=== PATIENT | male | born 1995 | race Caucasian/White ===

== ENCOUNTER 2020-11-24 23:08 | Emergency (ER) | payer BC ==
[2020-11-24 23:29] VITALS: BP 148/98; PULSE 82
--- NOTE | 2020-11-24 23:37 | EDM.PDOC ---
ED HPI GENERAL MEDICAL PROBLEM - General Chief Complaint: Skin Complaint Stated Complaint: LARGE CALLOUS /POSS CYST FORMING ON BOTH FEET SOB Time Seen by Provider: 11/24/20 23:36 - History of Present Illness INITIAL COMMENTS - FREE TEXT/NARRATIVE: 25-year-old male presents the emergency room with with shortness of breath will get better after having Covid in August and he has calluses on his feet. Patient has had couple months of foot problems and his feet are getting sore to walk in. He also has continued shortness of breath after Covid this last fall. Patient does not have any fevers or chills no other congestion no other Covid- like symptoms. The patient does smoke. The patient thought he had thick calluses on his feet and he is getting some discomfort in front of the balls of his feet when he ambulates. He has tried athlete's foot cream without much success. Patient has no other complaints at this time Bilateral Foot Pain Score (Numeric/FACES): 8 - Related Data Allergies Allergy/AdvReac Type Severity Reaction Status Date / Time No Known Allergies Allergy Verified 11/24/20 23:29 Home Meds: Home Meds . [No Known Home Meds] 11/24/20 [History] Past Medical History Psychiatric History: Reports: Anxiety - Infectious Disease History Infectious Disease History: Reports: Novel Coronavirus - Past Surgical History HEENT Surgical History: Reports: Tonsillectomy GI Surgical History: Reports: Appendectomy Social & Family History - Tobacco Use Tobacco Use Status *Q: Never Tobacco User - Caffeine Use Caffeine Use: Reports: None - Living Situation & Occupation Living situation: Reports: Single Occupation: Employed ED ROS GENERAL - Review of Systems Review Of Systems: See Below Constitutional: Reports: No Symptoms. Denies: Fever, Chills HEENT: Reports: No Symptoms Respiratory: Reports: Shortness of Breath, Cough (He has a mild cough just a typical smoker's cough for him) Cardiovascular: Reports: No Symptoms Endocrine: Reports: No Symptoms GI/Abdominal: Reports: No Symptoms : Reports: No Symptoms Musculoskeletal: Reports: No Symptoms Skin: Reports: Other (See history of present illness) Neurological: Reports: No Symptoms ED EXAM, SKIN/RASH Exam: See Below Exam Limited By: No Limitations General Appearance: Alert, No Apparent Distress Eye Exam: Bilateral Eye: Normal Inspection Ears: Normal External Exam, Normal Canal, Hearing Grossly Normal, Normal TMs Nose: Normal Inspection, Normal Mucosa, No Blood Throat/Mouth: Normal Inspection, Normal Lips, Normal Teeth, Normal Gums, Normal Oropharynx, Normal Voice, No Airway Compromise Head: Atraumatic, Normocephalic Neck: Normal Inspection, Supple, Non-Tender. No: Lymphadenopathy (L), Lymphadenopathy (R) Respiratory/Chest: No Respiratory Distress, Lungs Clear, Normal Breath Sounds Cardiovascular: Regular Rate, Rhythm, No Edema, No Murmur Skin: Other (Emanation of the skin on his feet shows dry scaly skin on the plantar aspects of his feet. He has some callus formation on the medial aspects of his great toes bilaterally this is not what is bothering him he has had this dry flaky skin peeled back off the anterior portion of the balls of his feet and the skin is getting a little tender in this area.) Course - Vital Signs Last Recorded V/S: Last Vital Signs Temp 36.6 C 11/24/20 23:26 Pulse 82 11/24/20 23:26 Resp 16 11/24/20 23:26 BP 148/98 H 11/24/20 23:26 Pulse Ox 100 11/24/20 23:26 - Re-Assessments/Exams Free Text/Narrative Re-Assessment/Exam: 11/24/20 23:52 Discussed checking a chest x-ray with the shortness of breath however he declined this. Departure - Departure Time of Disposition: 23:53 Disposition: Home, Self-Care 01 Clinical Impression: Dry skin dermatitis - Discharge Information Referrals: PCP,None [Primary Care Provider] - Forms: ED Department Discharge Additional Instructions: Return to the emergency room with any questions problems or worsening symptoms. Establish with a local healthcare provider. Try a good skin moisturizing cream on your feet such as Eucerin use this 4 times a day. Make sure your feet are very clean and dry before putting this on. As we discussed those [id number] foot insoles may be beneficial. If your feet are not improving follow-up with the sales and marketing manager in a couple of week s. Sepsis Event Note (ED) - Evaluation Sepsis Screening Result: No Definite Risk - Focused Exam Vital Signs: Vital Signs Temp Pulse Resp BP Pulse Ox 11/24/20 23:26 36.6 C 82 16 148/98 H 100
== END 2020-11-25 | disposition home or self-care (01) ==
LOC: JD.ED 23:08
DX: L85.3 Xerosis cutis (principal)
CPT/HCPCS: 99282; 99283

== ENCOUNTER 2021-07-31 05:33 | Observation (INO) | payer BC, OTHER ==
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
[2021-07-31] MEDS ORDERED: Iopamidol 755 Mg/ML 100 ML Bottle IVPUSH ONE (06:10)
[2021-07-31] MEDS ORDERED: Sodium Chloride 0.9% 10 ML SDV FLUSH ONE (06:10)
[2021-07-31] MEDS ORDERED: Iopamidol 755 MG/ML 50 ML Bottle IVPUSH ONE (06:10)
[2021-07-31] MEDS ORDERED: Sodium Chloride 0.9% 100 ML IV SCH (06:15)
[2021-07-31] MEDS ORDERED: HYDROmorphone 0.5 MG/0.5 ML Syringe IVPUSH ONE (06:22)
[2021-07-31] MEDS ORDERED: Ondansetron 4 MG/2 ML SDV IVPUSH ONE (06:22)
[2021-07-31] MEDS ORDERED: Sodium Chloride 0.9% 1,000 ML IV SCH (06:30)
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
[2021-07-31] MEDS ORDERED: Lactated Ringers 1,000 ML IV SCH (10:00)
--- NOTE | 2021-07-31 10:52 | CT ---
Head CT Technique: Multiple axial sections through the brain were obtained. Intravenous contrast was not utilized. Reconstructed coronal and sagittal images were obtained. Comparison: No prior intracranial imaging is available. Findings: Ventricles along with basal cisterns and sulci over the convexities are within normal limits for the patient's age. No abnormal parenchymal densities are seen. No evidence of intracranial hemorrhage is seen. No midline shift or mass-effect is seen. Mucosal thickening is seen within both maxillary sinuses as well as probable superimposed retention cysts. Other visualized paranasal sinuses are clear. Bone window settings were reviewed. Visualized mastoid sinuses show nothing acute. No acute calvarial abnormality is seen. Impression: 1. Mild chronic appearing paranasal sinus findings as noted above. 2. No acute intracranial abnormality is appreciated. Diagnostic code #2 I agree with preliminary report from [facility], finalized on 07/31/21, 7:43 AM CDT, code 1
--- NOTE | 2021-07-31 10:55 | CT ---
CT chest Technique: Multiple axial sections were obtained through the chest. Intravenous contrast was utilized. Reconstructed coronal and sagittal images were obtained. Comparison: No prior chest imaging is available. Findings: Thoracic aorta shows no aneurysm. Mediastinum shows no adenopathy or hematoma. No axillary adenopathy is seen. No pericardial thickening is appreciated. Slight area of increased density is noted within the left upper lung. Findings most likely represent an area of pulmonary contusion if patient has no symptoms of aspiration. Lungs otherwise are clear. No pleural effusions are seen. No pneumothorax is seen. Bone window settings were reviewed. No acute osseous abnormality is appreciated. Impression: 1. Patchy increased density within left upper chest most likely representing an area of pulmonary contusion. 2. No other acute abnormality is appreciated. Diagnostic code #3 I agree with preliminary report from [facility], finalized on 07/31/21, 7:58 AM CDT, code 1 CT abdomen and pelvis Technique: Multiple axial sections were obtained from above the dome of the diaphragm inferiorly through the pubic symphysis. Intravenous contrast was utilized. No oral contrast has been given. Delayed images were also obtained through the abdomen and pelvis. Reconstructed coronal and sagittal images were also obtained. Comparison: No prior CT abdomen or pelvis study is available. Findings: Liver shows no focal parenchymal abnormality. Spleen appears within normal limits. Adrenal glands show no nodule. Pancreas is within normal limits. Gallbladder contains no calcified gallstones. Kidneys show symmetric contrast enhancement. No hydronephrosis or mass is seen. Abdominal aorta shows no aneurysm. No retroperitoneal adenopathy or mesenteric abnormalities are seen. Small fat-containing umbilical hernia is noted. No pelvic mass or adenopathy is seen. Appendix is not visualized with certainty. Delayed images show contrast within the ureters as well as contrast being seen within the bladder. No contrast extravasation is seen. No bowel wall thickening is noted. Fatty wall is noted within the right colon and cecum which I believe is mostly chronic. Bone window settings were reviewed. Small bony density is noted off the acetabulum of the right hip which is believed to be incidental. Fracture is partially visualized within the distal left radius, please see plain film study. Impression: 1. Finding within the right hip believed to be incidental. 2. Fracture within the distal left radius, please see left radius plain film report. 3. Nothing acute is otherwise appreciated on CT study of the abdomen and pelvis. Diagnostic code #3 I agree with preliminary report from [facility], finalized on 07/31/21, 7:48 AM CDT, code 1
[2021-07-31] MEDS: oxyCODONE 5 MG Tab PO PRN ×3 (10:56→20:08)
[2021-07-31] MEDS: Acetaminophen 325 MG Tab PO SCH ×2 (10:56→18:00)
--- NOTE | 2021-07-31 10:56 | CT ---
CT cervical spine Technique: Multiple axial sections were obtained from above C1 inferiorly to the mid T3 level. Reconstructed coronal and sagittal images were obtained. Comparison: No prior cervical spine imaging is available. Findings: Mucosal thickening and superimposed retention cysts are seen within the inferior maxillary sinuses. Vertebral body heights and disc spaces are maintained. No bony central or bony neural foraminal stenosis is seen. Patchy increased density is seen within the left upper chest which likely representing pulmonary contusion. No acute fracture or abnormal subluxation is seen. Impression: 1. Mild chronic paranasal sinus findings as noted above. 2. Mild parenchymal contusion within the left upper chest. 3. No acute abnormality is otherwise seen on CT study of the cervical spine. Diagnostic code #2 I agree with preliminary report from [facility], finalized on 07/31/21, 7:48 AM CDT, code 1
--- NOTE | 2021-07-31 11:12 | CR ---
Left forearm: 2 views of the left forearm were obtained. Comparison: No prior forearm study is available. Fracture is identified within the elbow with displaced bony fragment seen anteriorly. This is compatible with a medial epicondylar fracture. Mild soft tissue foreign bodies are seen within the subcutaneous tissues and probably on top of the skin. Small soft tissue laceration is noted posteriorly at the elbow. Soft tissue laceration is noted anteriorly within the wrist. Small soft tissue foreign bodies are seen as well as foreign bodies on top of the skin within the wrist. Distal radial fracture is noted through the radial metaphysis. Minimal impaction is seen. No additional abnormality is appreciated other than diffuse soft tissue swelling. Impression: 1. Displaced medial epicondylar humeral fracture within the elbow. 2. Mildly impacted distal left radial fracture. 3. Scattered soft tissue foreign bodies within the wrist and within the elbow presumably subcutaneous as well as on top of the skin. 4. Soft tissue lacerations are seen at the elbow and at the wrist. Diagnostic code #3
--- NOTE | 2021-07-31 11:14 | CR ---
Left humerus: 2 views of the left humerus were obtained. Comparison: No prior left humerus study is available. Displaced medial epicondylar fracture is seen within the distal humerus at the elbow. Small soft tissue laceration is seen. Scattered small foreign bodies are projected within the subcutaneous tissues and probably on top of the skin at the level of the elbow. No additional humeral abnormality is appreciated. Impression: 1. Displaced medial epicondylar fracture. 2. Soft tissue laceration and small scattered foreign bodies. Diagnostic code #3
--- NOTE | 2021-07-31 11:18 | CR ---
This study was dictated as part of right shoulder study. No charge will be made.
--- NOTE | 2021-07-31 11:18 | CR ---
Right shoulder: 3 views of the right shoulder were obtained. Comparison: No prior right shoulder study is available. Glenohumeral joint and acromioclavicular joint appear within normal limits. No acute fracture, dislocation or other bony abnormality is appreciated. Impression: 1. No abnormality is identified on right shoulder exam. Diagnostic code #1 Left shoulder: 3 views of the left shoulder were obtained. Comparison: No prior left shoulder study is available. This study was performed incorrectly and no charge will be made. Glenohumeral joint and acromioclavicular joint appear within normal limits. No acute fracture, dislocation or other bony abnormality is appreciated. Impression: 1. Unremarkable left shoulder study. Diagnostic code #1
--- NOTE | 2021-07-31 14:15 | CR ---
Chest: Portable supine view of the chest was obtained. Comparison: No prior chest x-rays available, a subsequent chest CT study performed later on the same day is available. Patchy increased density within left upper chest is seen most likely representing pulmonary contusion. Lungs otherwise are clear. Heart size and mediastinum are normal. No discrete osseous abnormality is appreciated. Impression: 1. Left upper lung pulmonary contusion. 2. Nothing acute is otherwise seen on supine chest x-ray. Diagnostic code #3
[2021-07-31] MEDS: ceFAZolin 1 GM in Sodium Chloride 0.9% 100 ML IV SCH ×2 (14:31→22:30)
[2021-07-31] MEDS: Morphine 2 MG/ML SYRINGE IVPUSH PRN ×3 (16:26→22:30)
[2021-08-01] MEDS: oxyCODONE 5 MG Tab PO PRN ×2 (00:16→06:28)
[2021-08-01] MEDS: Morphine 2 MG/ML SYRINGE IVPUSH PRN ×2 (01:39→06:29)
[2021-08-01] MEDS: Acetaminophen 325 MG Tab PO SCH (01:50)
[2021-08-01] MEDS: ceFAZolin 1 GM in Sodium Chloride 0.9% 100 ML IV SCH (06:30)
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
[2021-08-01 11:05] VITALS: BP 127/73; PULSE 82
--- NOTE | 2021-08-02 13:30 | CT ---
CT left forearm Technique: Multiple axial sections of the left forearm were obtained. Reconstructed coronal and sagittal images were obtained. Comparison: Prior left forearm radiographic study performed earlier on the same day (6:44 AM). Findings: Medial epicondylar fracture is seen. Fragment is displaced by up to 1.2 cm. Soft tissue air is noted around the left elbow. Soft tissue foreign bodies are also noted. Fracture is identified within the distal left radius. Fracture shows a horizontal metaphyseal component as well as a slight vertical fracture line extending into the epiphysis and articular margin. Minimal impaction is seen. Superficial soft tissue foreign bodies are seen which appeared to be within the skin. No additional bony abnormality is appreciated within the left forearm. Impression: 1. Medial epicondylar fracture within the distal left humerus displaced up to 1.2 cm. 2. Soft tissue air within the left elbow as well as soft tissue foreign bodies. 3. Fracture within the distal radius involving a horizontal metaphyseal fracture line as well as mild vertical fracture line extending into the epiphysis and articular margin. Mild impaction is seen. 4. Mild soft tissue foreign bodies are seen which appear to be on top of the skin at the wrist. 5. No other acute bony abnormality is appreciated. Diagnostic code #3. MTDD
== END 2021-08-01 10:30 | disposition home or self-care (01) ==
LOC: JD.ED 05:33 → JD.OB 09:51
PROVIDERS: ADMIT Surgery; ATTEND Surgery
DX: S42.442A Displaced fracture (avulsion) of medial epicondyle of left humerus, initial encounter for closed fracture (principal); S52.502A Unspecified fracture of the lower end of left radius, initial encounter for closed fracture; S27.329A Contusion of lung, unspecified, initial encounter; E86.0 Dehydration; D72.829 Elevated white blood cell count, unspecified; Z86.16 Personal history of COVID-19; F17.210 Nicotine dependence, cigarettes, uncomplicated; Z20.822 Contact with and (suspected) exposure to COVID-19; F10.129 Alcohol abuse with intoxication, unspecified; Y90.0 Blood alcohol level of less than 20 mg/100 ml; V89.2XXA Person injured in unspecified motor-vehicle accident, traffic, initial encounter
CPT/HCPCS: 29105; 36415; 70450; 71045; 71260; 72125; 73030; 73060; 73090; 73200; 74177; 80048; 80053; 80306; 80307; 85025; 85610; 85730; 87635; 96365; 96366; 96374; 96375; 96376; 99285; A9270; G0378; J0690; J1170; J2270; J2405; J7030; Q9967; 29125; U0002